=== PATIENT | male | born 1930 | race Caucasian/White ===

== ENCOUNTER 2016-06-30 07:52 | Emergency (ER) | payer MEDICARE, MEDICAID ==
[2016-06-30 09:18] LABS: ABSOLUTE EOSINOPHILS # (AUTO) 0.5 10^3/uL (0.0-0.6); ABSOLUTE LYMPHOCYTES (AUTO) 1.1 10^3/uL (0.5-4.7); ABSOLUTE NEUT (AUTO) 5.5 10^3/uL (1.7-8.2); BASOPHILS % (AUTO) 0.2 % (0-2); EOSINOPHILS % (AUTO) 5.7 % (0-6); HEMATOCRIT 34.7 % (37.9-51.0); HGB HCT DIFFERENCE 1.3; LYMPHOCYTES % (AUTO) 13.3 % (13-45); MEAN CORPUSCULAR HEMOGLOBIN 31.3 pg (27.0-33.4); MEAN CORPUSCULAR HGB CONC 34.6 g/dL (32.0-36.0); MEAN CORPUSCULAR VOLUME 91 fl (80-97); MONOCYTES % (AUTO) 12.8 % (3-13); RED BLOOD COUNT 3.84 10^6/uL (4.35-5.55); RED CELL DISTRIBUTION WIDTH 13.4 % (11.5-14.0); WHITE BLOOD COUNT 8.1 10^3/uL (4.0-10.5)
[2016-06-30 09:40] LABS: ALANINE AMINOTRANSFERASE 37 U/L (21-72); ALBUMIN 3.2 g/dL (3.5-5.0); ALKALINE PHOSPHATASE 108 U/L (38-126); ANION GAP 11 (5-19); ASPARTATE AMINO TRANSFERASE 26 U/L (17-59); BILIRUBIN,TOTAL 0.6 mg/dL (0.2-1.3); BLOOD UREA NITROGEN 18 mg/dL (7-20); CARBON DIOXIDE 28 mmol/L (22-30); CHLORIDE 103 mmol/L (98-107); CREATININE RESULT 0.99 mg/dL (0.52-1.25); GLUCOSE 112 mg/dL (75-110); SODIUM 141.8 mmol/L (137-145); TOTAL PROTEIN 6.5 g/dL (6.3-8.2)
[2016-06-30 10:09] LABS: VENOUS BLOOD BASE EXCESS 4.5 mmol/L; VENOUS BLOOD PCO2 52.3 mmHg (35-63); VENOUS BLOOD PH 7.39 (7.30-7.42)
--- NOTE | 2016-06-30 10:12 | EKG REPORT ---
SEVERITY:- OTHERWISE NORMAL ECG - SINUS RHYTHM LEFT AXIS DEVIATION : Confirmed by: Lucinda Fleming 30-Jun-2016 10:10:52
[2016-06-30 10:35] LABS: PROTHROMBIN TIME 14.5 SEC (11.4-15.4)
[2016-06-30 12:02] LABS: APPEARANCE,URINE HAZY; BILIRUBIN,URINE NEGATIVE (NEGATIVE); GLUCOSE, URINE NEGATIVE (NEGATIVE); KETONES,URINE NEGATIVE (NEGATIVE); PROTEIN,URINE 30 mg/dL (NEGATIVE); URINE SPECIFIC GRAVITY 1.016
[2016-06-30 12:03] LABS: BACTERIA,URINE 4+ /HPF; LEUKOCYTE ESTERASE,URINE LARGE (NEGATIVE); NITRITE,URINE POSITIVE (NEGATIVE); UROBILINOGEN,URINE NEGATIVE mg/dL (<2.0); WBC,URINE 50-100 /HPF
--- NOTE | 2016-06-30 12:31 | ER Document Report ---
ED General - General Chief Complaint: Altered Mental Status Stated Complaint: ALTERED MENTAL STATUS Mode of Arrival: Medic Information source: Patient, Emergency Med Personnel Cannot obtain history due to: Dementia, Altered mental status Notes: 85-year-old male sent in from care facility with concerns for confusion. Denies any fevers chills nausea vomiting or diarrhea. Patient has baseline dementia appears to be more confused TRAVEL OUTSIDE OF THE [place] IN LAST 30 DAYS: No - HPI Onset: This morning Onset/Duration: Sudden Quality of pain: No pain Severity: Mild Pain Level: Denies Associated symptoms: Weakness Exacerbated by: Denies Relieved by: Denies Similar symptoms previously: Yes Recently seen / treated by doctor: No - Related Data Allergies/Adverse Reactions: No Known Allergies Allergy (Verified 06/03/15 18:15) Past Medical History - General Information source: [facility] Records, Outside Facility Records - Social History Smoking Status: Never Smoker Cigarette use (# per day): No Chew tobacco use (# tins/day): No Smoking Education Provided: No Frequency of alcohol use: None Drug Abuse: None Family History: Reviewed & Not Pertinent Patient has suicidal ideation: No Patient has homicidal ideation: No - Past Medical History Cardiac Medical History: Reports: Hx Congestive Heart Failure, Hx Hypertension Pulmonary Medical History: Denies: Hx Tuberculosis GI Medical History: Reports: Hx Gastroesophageal Reflux Disease Musculoskeltal Medical History: Reports Hx Arthritis - Osteoarthritis Psychiatric Medical History: Denies: Hx Depression - Immunizations Hx Diphtheria, Pertussis, Tetanus Vaccination: Yes Hx Pneumococcal Vaccination: 04/02/14 Review of Systems - Review of Systems Notes: REVIEW OF SYSTEMS: CONSTITUTIONAL : Denies fever, chills, or sweats. Denies recent illness. EENT: Denies eye, ear, throat, or mouth pain or symptoms. Denies nasal or sinus congestion or discharge. Denies throat, tongue, or mouth swelling or difficulty swallowing. CARDIOVASCULAR: Denies chest pain. Denies palpitations or racing or irregular heart beat. Denies ankle edema. RESPIRATORY: Denies cough, cold, or chest congestion. Denies shortness of breath, difficulty breathing, or wheezing. GASTROINTESTINAL: Denies abdominal pain or distention. Denies nausea, vomiting , or diarrhea. Denies blood in vomitus, stools, or per rectum. Denies black, tarry stools. Denies constipation. GENITOURINARY: Denies difficulty urinating, painful urination, burning, frequency, blood in urine, or discharge. MUSCULOSKELETAL: Denies back or neck pain or stiffness. Denies joint pain or swelling. SKIN: Denies rash, lesions or sores. HEMATOLOGIC : Denies easy bruising or bleeding. LYMPHATIC: Denies swollen, enlarged glands. NEUROLOGICAL: Confusion noted per care facility PSYCHIATRIC: Denies anxiety or stress. Denies depression, suicidal ideation, or homicidal ideation. ALL OTHER SYSTEMS REVIEWED AND NEGATIVE. Dictation was performed using [employer] voice recognition software PHYSICAL EXAMINATION: GENERAL: Elderly male no acute distress HEAD: Atraumatic, normocephalic. EYES: Pupils equal round and reactive to light, extraocular movements intact, sclera anicteric, conjunctiva are normal. ENT: Nares patent, oropharynx clear without exudates. Moist mucous membranes. NECK: Normal range of motion, supple without lymphadenopathy LUNGS: Breath sounds clear to auscultation bilaterally and equal. No wheezes rales or rhonchi. HEART: Regular rate and rhythm without murmurs ABDOMEN: Soft, nontender, nondistended abdomen. No guarding, no rebound. No masses appreciated. Musculoskeletal: Normal range of motion, no pitting or edema. No cyanosis. NEUROLOGICAL: Baseline dementia PSYCH: Normal mood, normal affect. SKIN: Warm, Dry, normal turgor, no rashes or lesions noted. Physical Exam - Vital signs Vitals: Temp Pulse Resp BP Pulse Ox 98.0 F 95 20 134/94 H 93 06/30/16 08:06 06/30/16 08:06 06/30/16 08:06 06/30/16 08:06 06/30/16 08:06 Course - Re-evaluation Re-evalutation: 06/30/16 16:17 A septic workup was performed given the vague complaints, it does appear the patient has a urinary tract infection will restart on antibiotics. Culture has been ordered patient's otherwise stable and appears to be at his baseline. I will have the patient discharged back to care facility where he can have close care. They have been instructed to send the patient back immediately if there are any other concerns After performing a Medical Screening Examination, I estimate there is LOW risk for ACUTE CORONARY SYNDROME, RESPIRATORY FAILURE, SEPSIS OR MENINGITIS, thus I consider the discharge disposition reasonable. The patient and I have discussed the diagnosis and risks and even though he has dementia, we agree with discharging home with close follow-up. We also discussed returning to the Emergency Department immediately if new or worsening symptoms occur. We have discussed the symptoms which are most concerning (e.g., changing or worsening pain, trouble swallowing or breathing, neck stiffness, fever) that necessitate immediate return. - Vital Signs Vital signs: Temp Pulse Resp BP Pulse Ox 98.5 F 102 H 16 121/68 92 06/30/16 14:02 06/30/16 14:02 06/30/16 14:02 06/30/16 14:02 06/30/16 14:02 - Laboratory Result Diagrams: 06/30/16 08:57 06/30/16 08:57 Laboratory results interpreted by me: 06/30/16 06/30/16 06/30/16 08:57 08:57 10:30 RBC 3.84 L Hgb 12.0 L Hct 34.7 L Plt Count 130 L Glucose 112 H Albumin 3.2 L Urine Protein 30 H Urine Nitrite POSITIVE H Ur Leukocyte Esterase LARGE H Urine Ascorbic Acid 40 H - Diagnostic Test Radiology reviewed: Image reviewed, Reports reviewed Discharge - Discharge Clinical Impression: Confusion UTI (urinary tract infection) Qualifiers: Urinary tract infection type: acute cystitis Hematuria presence: without hematuria Qualified Code(s): N30.00 - Acute cystitis without hematuria Condition: Stable Disposition: HOME, SELF-CARE Instructions: Urinary Tract Infection ([facility]) Prescriptions: Cephalexin Monohydrate [Keflex 500 mg Capsule] 500 mg PO BID #20 capsule Referrals: Rohan Bell CONTINUITY COORDINATOR [Primary Care Provider] - Follow up tomorrow
[2016-06-30] MEDS ORDERED: CEFTRIAXONE 1 GM/D5W RTU 50 ML IV ONE (12:36)
[2016-06-30 14:22] VITALS: BP 121/68
== END 2016-06-30 14:30 | disposition home or self-care (01) ==
LOC: ER 07:52
DX: N30.00 Acute cystitis without hematuria (principal); R53.1 Weakness; I10 Essential (primary) hypertension
CPT/HCPCS: 36415; 51702; 70450; 80053; 81001; 82803; 82962; 83605; 85025; 85610; 87040; 87086; 87088; 87186; 93005; 93010; 99285

== ENCOUNTER 2016-07-07 11:32 | Emergency (ER) | payer MEDICARE, MEDICAID ==
[2016-07-07 12:36] LABS: ABSOLUTE EOSINOPHILS # (AUTO) 0.7 10^3/uL (0.0-0.6); ABSOLUTE LYMPHOCYTES (AUTO) 1.9 10^3/uL (0.5-4.7); ABSOLUTE MONOCYTES (AUTO) 1.1 10^3/uL (0.1-1.4); ABSOLUTE NEUT (AUTO) 6.3 10^3/uL (1.7-8.2); BASOPHILS % (AUTO) 0.4 % (0-2); EOSINOPHILS % (AUTO) 6.8 % (0-6); HEMATOCRIT 33.6 % (37.9-51.0); HEMOGLOBIN 11.4 g/dL (13.5-17.0); HGB HCT DIFFERENCE 0.6; MEAN CORPUSCULAR HEMOGLOBIN 30.9 pg (27.0-33.4); MEAN CORPUSCULAR VOLUME 91 fl (80-97); MONOCYTES % (AUTO) 10.7 % (3-13); RED BLOOD COUNT 3.69 10^6/uL (4.35-5.55); RED CELL DISTRIBUTION WIDTH 13.2 % (11.5-14.0); SEGMENTED NEUTROPHILS % (AUTO) 63.1 % (42-78); WHITE BLOOD COUNT 9.9 10^3/uL (4.0-10.5)
[2016-07-07] MEDS ORDERED: IPRATROPIUM/ALBUTEROL 0.5-2.5 MG/3 ML AMPUL NEB ONE (14:12)
--- NOTE | 2016-07-07 14:37 | ER Document Report ---
ED Respiratory Problem - General Chief Complaint: Cough Stated Complaint: NO COMPLAINTS/ASSESSMENT Mode of Arrival: Medic Information source: Emergency Med Personnel, Outside Facility Records Cannot obtain history due to: Dementia Notes: 85 y/o M presents to ED via EMS from [facility] referred by PCP for evaluation of possible pneumonia. Per facility records was noted to have rhonchi this morning per provider and was sent to the ED for x-ray. Records also test evaluation of rash to left upper thorax that he has had for several weeks. Patient has been on a course of oral Cipro and cephalexin for recently diagnosed UTI over the last 2 days. Afebrile on vital signs and O2 saturation > 95% on 2L NC. Patient is poor historian due to dementia but denies pain or discomfort at this time. TRAVEL OUTSIDE OF THE [place] IN LAST 30 DAYS: No - HPI Patient complains to provider of: Cough Pain Level: Denies Cough: Nonproductive Recently seen / treated by doctor: Yes - Related Data Allergies/Adverse Reactions: No Known Allergies Allergy (Verified 06/03/15 18:15) Past Medical History - General Information source: Emergency Med Personnel, Outside Facility Records Cannot obtain history due to: Dementia - Social History Smoking Status: Unknown if Ever Smoked Frequency of alcohol use: None Drug Abuse: None Lives with: Family Family History: Reviewed & Not Pertinent - Past Medical History Cardiac Medical History: Reports: Hx Congestive Heart Failure, Hx Hypertension Pulmonary Medical History: Denies: Hx Tuberculosis GI Medical History: Reports: Hx Gastroesophageal Reflux Disease Musculoskeltal Medical History: Reports Hx Arthritis - Osteoarthritis Psychiatric Medical History: Denies: Hx Depression Surgical Hx: Negative - Immunizations Hx Diphtheria, Pertussis, Tetanus Vaccination: Yes Hx Pneumococcal Vaccination: 04/02/14 Review of Systems - Review of Systems Constitutional: No symptoms reported EENT: No symptoms reported Cardiovascular: No symptoms reported Respiratory: See HPI Gastrointestinal: No symptoms reported Genitourinary: No symptoms reported Male Genitourinary: No symptoms reported Musculoskeletal: No symptoms reported Skin: See HPI Hematologic/Lymphatic: No symptoms reported Neurological/Psychological: No symptoms reported -: Yes All other systems reviewed and negative Physical Exam - Vital signs Vitals: Resp BP Pulse Ox 23 H 148/86 H 98 07/07/16 12:12 07/07/16 12:12 07/07/16 12:12 Interpretation: Normal - General General appearance: Appears well, Alert In distress: None - HEENT Head: Normocephalic, Atraumatic Eyes: Normal Conjunctiva: Normal Pupils: PERRL Ears: Normal External canal: Normal Sinus: Normal Nasal: Normal Mouth/Lips: Normal Mucous membranes: Normal, Moist Pharynx: Normal. No: Blood in hypopharynx, Erythema, Exudate, Peritonsillar abscess, Post nasal drainage, Retropharyngeal abscess, Tonsillar hypertrophy, Uvular edema, Potential airway comprom., Other Neck: Normal. No: Anterior cervical chain, Posterior cervical chain, Lymphadenopathy, Meningismus, Subcutaneous emphysema - Respiratory Respiratory status: No respiratory distress. No: Labored, Tachypnea Chest status: Nontender Breath sounds: Nonproductive cough, Rhonchi - Mild rhonchi to bilateral upper lobes. No: Decreased air movement, Rales, Stridor, Wheezing Chest palpation: Normal. No: Flail segment, [place] frothy sputum, Purulent sputum , Subcutaneous emphysema, Sucking chest wound, Tender, Ecchymosis, Wounds, Other - Cardiovascular Rhythm: Regular Heart sounds: Normal auscultation Murmur: No Pulses: Normal: Radial Normal capillary refill: Yes - Abdominal Inspection: Normal Distension: No distension Bowel sounds: Normal Tenderness: Nontender Organomegaly: No organomegaly - Back Back: Normal, Nontender - Extremities General upper extremity: Normal inspection, Nontender, Normal color, Normal ROM , Normal strength, Normal temperature. No: Tender, Edema General lower extremity: Normal inspection, Nontender, Normal color, Normal strength, Normal temperature. No: Tender, Edema, Chaparro's sign - Neurological Neuro grossly intact: Yes Cognition: Normal Orientation: AAOx4 Daljit Coma Scale Eye Opening: Spontaneous Daljit Coma Scale Verbal: Oriented [place] Coma Scale Motor: Obeys Commands [place] Coma Scale Total: 15 Speech: Normal Motor strength normal: LUE, RUE, LLE, RLE Sensory: Normal - Psychological Associated symptoms: Normal affect, Normal mood - Skin Skin Temperature: Warm Skin Moisture: Dry Skin Color: Normal Skin Turgor: Loose Skin irregularity: Rash - Patchy erythematous and slightly scaly rash/skin changes to left upper thorax. No swelling, drainage, skin thickening, fluctuance, or warmth. Course - Re-evaluation Re-evalutation: 07/07/16 14:41 Patient hemodynamically stable, in no distress, afebrile, nontoxic, and appears well-hydrated. Mild rhonchi resolved after a single DuoNeb treatment. Patient O2 sat 95% on room air. Patient at baseline neurological status per outside facility records. Chest x-ray shows minimal bibasilar atelectasis without overt pneumonia. No indication for starting additional antibiotic regimen at this time as patient is currently on course of ciprofloxacin and cephalexin for UTI. Rash/skin eruption to left upper thorax not suggestive of significant or emergent etiology at this time. Patient is well-appearing and in no distress. Patient appears stable for discharge back to nursing facility at this time. Patient presentation, findings, ED care, and plan discussed with ED physician Dr. Bravo who concurs with evaluation and treatment. - Vital Signs Vital signs: Temp Pulse Resp BP Pulse Ox 98.8 F 17 150/77 H 95 07/07/16 12:33 07/07/16 16:01 07/07/16 16:01 07/07/16 16:01 - Laboratory Result Diagrams: 07/07/16 12:10 Laboratory results interpreted by me: 07/07/16 12:10 RBC 3.69 L Hgb 11.4 L Hct 33.6 L Eosinophils % 6.8 H Absolute Eosinophils 0.7 H - Diagnostic Test Radiology reviewed: Image reviewed, Reports reviewed Discharge - Discharge Clinical Impression: Atelectasis Condition: Stable Disposition: HOME-SNF (ED ONLY) Instructions: Atelectasis ([facility]) Additional Instructions: Follow-up with your primary care provider tomorrow. Return to the Emergency Department for any worsening symptoms or concerns.
[2016-07-07 16:49] VITALS: BP 150/77
== END 2016-07-07 16:20 ==
LOC: ER 11:32
DX: J98.11 Atelectasis (principal); R21 Rash and other nonspecific skin eruption; N39.0 Urinary tract infection, site not specified; F03.90 Unspecified dementia, unspecified severity, without behavioral disturbance, psychotic disturbance, mood disturbance, and anxiety; I10 Essential (primary) hypertension
CPT/HCPCS: 94640; 99284; 36415; 87040; 85025; 71020; A9270; J7620

== ENCOUNTER 2016-08-02 13:55 | Emergency (ER) | payer MEDICARE, MEDICAID ==
[2016-08-02 15:11] LABS: ABSOLUTE EOSINOPHILS # (AUTO) 0.3 10^3/uL (0.0-0.6); ABSOLUTE LYMPHOCYTES (AUTO) 1.3 10^3/uL (0.5-4.7); ABSOLUTE NEUT (AUTO) 4.1 10^3/uL (1.7-8.2); BASOPHILS % (AUTO) 0.3 % (0-2); EOSINOPHILS % (AUTO) 4.2 % (0-6); HEMATOCRIT 35.5 % (37.9-51.0); HEMOGLOBIN 12.4 g/dL (13.5-17.0); HGB HCT DIFFERENCE 1.7; LYMPHOCYTES % (AUTO) 19.7 % (13-45); MEAN CORPUSCULAR HEMOGLOBIN 31.6 pg (27.0-33.4); MEAN CORPUSCULAR VOLUME 90 fl (80-97); MONOCYTES % (AUTO) 14.8 % (3-13); RED BLOOD COUNT 3.94 10^6/uL (4.35-5.55); RED CELL DISTRIBUTION WIDTH 13.8 % (11.5-14.0); WHITE BLOOD COUNT 6.7 10^3/uL (4.0-10.5)
[2016-08-02 15:20] LABS: AMORPHOUS SEDIMENT,URINE TRACE /HPF; APPEARANCE,URINE SLIGHTLY-CLOUDY; BILIRUBIN,URINE NEGATIVE (NEGATIVE); GLUCOSE, URINE NEGATIVE (NEGATIVE); KETONES,URINE NEGATIVE (NEGATIVE); LEUKOCYTE ESTERASE,URINE MODERATE (NEGATIVE); NITRITE,URINE NEGATIVE (NEGATIVE); PROTEIN,URINE NEGATIVE (NEGATIVE); URINE SPECIFIC GRAVITY 1.011; UROBILINOGEN,URINE NEGATIVE mg/dL (<2.0)
[2016-08-02 15:31] LABS: ALANINE AMINOTRANSFERASE 27 U/L (21-72); ALBUMIN 3.7 g/dL (3.5-5.0); ALKALINE PHOSPHATASE 103 U/L (38-126); ANION GAP 11 (5-19); ASPARTATE AMINO TRANSFERASE 23 U/L (17-59); BILIRUBIN,TOTAL 0.4 mg/dL (0.2-1.3); BLOOD UREA NITROGEN 18 mg/dL (7-20); CARBON DIOXIDE 29 mmol/L (22-30); CHLORIDE 102 mmol/L (98-107); CREATININE RESULT 1.15 mg/dL (0.52-1.25); GLUCOSE 121 mg/dL (75-110); POTASSIUM 4.2 mmol/L (3.6-5.0); SODIUM 142.3 mmol/L (137-145); TOTAL PROTEIN 6.8 g/dL (6.3-8.2)
[2016-08-02] MEDS ORDERED: CEFTRIAXONE RTU 1 GM/D5W 50 ML IV ONE (15:55)
[2016-08-02] MEDS ORDERED: LIDOCAINE 1% INJ-PF (10 MG/ML) 30 ML SDV INJ ONE (16:08)
[2016-08-02] MEDS ORDERED: LEVOFLOXACIN 500 MG/D5W RTU 100 ML IV ONE (16:12)
--- NOTE | 2016-08-02 16:32 | ER Document Report ---
ED General - General Chief Complaint: Altered Mental Status Stated Complaint: ALTERED MENTAL STATUS Information source: Patient Notes: 85-year-old male who presents from the [facility] assisted living location secondary to some change in mental status. Supposedly the patient was having "two-minute periods of staring off". There is been no fevers, vomiting, or diarrhea. Patient on one month ago was treated for urinary tract infection with Keflex. Urine cultures did show Escherichia coli greater than 100,000 colonies per milliliter resistant to first and second and third generation cephalosporins. It appears reviewing the records that note was made from this facility to the facility of the patient's residence. Patient has no history of seizures. Patient does have baseline dementia. Patient denies any and all pain in any location when I ask him with repeat questioning. TRAVEL OUTSIDE OF THE [place] IN LAST 30 DAYS: No - HPI Onset: This morning Onset/Duration: Gradual Quality of pain: No pain Severity: Moderate Pain Level: Denies Associated symptoms: Other - See above Exacerbated by: Denies Relieved by: Denies Similar symptoms previously: Yes Recently seen / treated by doctor: Yes - Related Data Allergies/Adverse Reactions: No Known Allergies Allergy (Verified 06/03/15 18:15) Past Medical History - General Information source: Patient, Emergency Med Personnel, [facility] Records - Social History Smoking Status: Unknown if Ever Smoked Cigarette use (# per day): No Chew tobacco use (# tins/day): No Smoking Education Provided: No Frequency of alcohol use: None Drug Abuse: None Family History: Reviewed & Not Pertinent - Past Medical History Cardiac Medical History: Reports: Hx Congestive Heart Failure, Hx Hypertension Pulmonary Medical History: Denies: Hx Tuberculosis GI Medical History: Reports: Hx Gastroesophageal Reflux Disease Musculoskeltal Medical History: Reports Hx Arthritis - Osteoarthritis Psychiatric Medical History: Denies: Hx Depression - Immunizations Hx Diphtheria, Pertussis, Tetanus Vaccination: Yes Hx Pneumococcal Vaccination: 04/02/14 Review of Systems - Review of Systems Constitutional: denies: Fever EENT: denies: Eye discharge, Nose congestion, Nose discharge Cardiovascular: denies: Chest pain Respiratory: denies: Short of breath Gastrointestinal: denies: Vomiting Genitourinary: denies: Dysuria Musculoskeletal: denies: Leg swelling Skin: Other - no hives. denies: Rash Neurological/Psychological: Other - no slurred speech -: Yes All other systems reviewed and negative Physical Exam - Vital signs Vitals: Resp 16 08/02/16 14:00 Notes: Reviewed vital signs and nursing note as charted by RN. CONSTITUTIONAL: Alert and polite and follows commands. He is oriented to person only. Well-appearing; well-nourished HEAD: Normocephalic; atraumatic EYES: PERRL ENT: Normal nose; no rhinorrhea; moist mucous membranes; pharynx without lesions noted NECK: Supple without meningismus; non-tender; no cervical lymphadenopathy, no masses CARD: Regular rate and rhythm; no murmurs, no clicks, no rubs, no gallops; symmetric distal pulses RESP: Normal chest excursion without splinting or tachypnea; breath sounds clear and equal bilaterally ABD/GI: Normal bowel sounds; non-distended; soft, non-tender, no rebound, no guarding; no palpable organomegaly or masses BACK: The back appears normal and is non-tender to palpation, there is no CVA tenderness EXT: Normal ROM in all joints; non-tender to palpation; no cyanosis, no effusions, no edema SKIN: Patient appears to have an area of tenderness, fluctuance, and induration to the left lower area of his breast consistent mostly with a small abscess. NEURO: CN II through XII are intact. Moves all extremities equally; Motor and sensory function intact Course - Re-evaluation Re-evalutation: I spoke with Sarah at the nursing care facility. She reiterated the story. She was unaware of breast lesion. 08/02/16 16:33 Labs as recorded. Given the previous urine culture, with the small abscess that we will perform an incision and drainage, we will most likely start the patient on Bactrim with strict return precautions and urine culture pending. We will obtain a CT scan of the head given the patient's history and age. 08/02/16 16:36 EKG shows a heart of 79, normal sinus rhythm, borderline left axis deviation, no obvious ST elevation or depression. Minimally prolonged QT interval. Old EKG shows no obvious appreciable change. 08/02/16 18:42 Incision and drainage has been performing cultures have been sent. Minimal serous sanguinous drainage. I probed to break up any obvious loculations. No packing was placed. Area of erythema has been circled. Keflex and Bactrim will be prescribed. 08/02/16 19:33 CT scan of the head shows no acute abnormalities. Patient still has no focal neurological deficits, vomiting, or fevers. Patient does not have any obvious lethargy. I have called the facility and have written extensive discharge summaries regarding urine culture follow-up and wound care follow-up and reassessment of the left chest wound. I will treat the patient with Bactrim and Keflex given the urinary tract infection, urine culture results, and cellulitis/abscess of the chest wall. - Vital Signs Vital signs: Temp Pulse Resp BP Pulse Ox 98.8 F 70 16 155/70 H 98 08/02/16 19:28 08/02/16 19:28 08/02/16 19:28 08/02/16 19:28 08/02/16 19:28 - Laboratory Result Diagrams: 08/02/16 14:42 08/02/16 14:42 Laboratory results interpreted by me: 08/02/16 08/02/16 08/02/16 14:42 14:42 14:42 RBC 3.94 L Hgb 12.4 L Hct 35.5 L Plt Count 144 L Monocytes % 14.8 H Glucose 121 H Ur Leukocyte Esterase MODERATE H Urine Ascorbic Acid 20 H Procedures - Incision and Drainage Left Chest Type: Simple Anesthetic type: 1% Lidocaine Blade size: 11 I&D procedure: Chlorprep applied Incision Method: Incision made by scalpel Amount/type of drainage: minimal Discharge - Discharge Clinical Impression: Altered mental status Qualifiers: Altered mental status type: unspecified Qualified Code(s): R41.82 - Altered mental status, unspecified UTI (urinary tract infection) Qualifiers: Urinary tract infection type: acute cystitis Hematuria presence: with hematuria Qualified Code(s): N30.01 - Acute cystitis with hematuria Cellulitis Qualifiers: Site of cellulitis: trunk Site of cellulitis of trunk: chest wall Qualified Code(s): L03.313 - Cellulitis of chest wall Condition: Good Disposition: HOME, SELF-CARE Additional Instructions: Please make sure that you provide the antibiotics as prescribed. Please make sure that you have a provider check his urine culture on Wednesday as well as recheck his left chest cellulitis/lesion as well as the wound cultures from the incision we performed here in the emergency department. Send back immediately with any fevers, vomiting, change in the size of the redness of the left chest, increased confusion, or any other acute problems. Prescriptions: Cephalexin Monohydrate [Keflex 500 mg Capsule] 500 mg PO Q6H 7 Days Sulfamethoxazole/Trimethoprim [Bactrim Ds Tablet] 1 each PO BID #14 tablet Referrals: Rohan Bell DRIVER TRAINEE [Primary Care Provider] - Follow up as needed
[2016-08-02] MEDS ORDERED: CEPHALEXIN 500 MG CAPSULE PO ONE ×2 (18:02→21:15)
--- NOTE | 2016-08-02 19:32 | EKG REPORT ---
SEVERITY:- BORDERLINE ECG - SINUS RHYTHM BORDERLINE LEFT AXIS DEVIATION BORDERLINE PROLONGED QT INTERVAL : Confirmed by: Lucinda Fleming 02-Aug-2016 19:31:52
[2016-08-02 21:25] VITALS: BP 156/89
== END 2016-08-02 21:25 | disposition home or self-care (01) ==
LOC: ER 13:55
PROC: 0H95XZZ Drainage of Chest Skin, External Approach (ICD-10-PCS; principal; 2016-08-02)
DX: R41.82 Altered mental status, unspecified (principal); N30.01 Acute cystitis with hematuria; L03.313 Cellulitis of chest wall; F03.90 Unspecified dementia, unspecified severity, without behavioral disturbance, psychotic disturbance, mood disturbance, and anxiety
CPT/HCPCS: 36415; 51701; 70450; 80053; 81001; 84484; 85025; 87070; 87075; 87077; 87186; 87205; 93005; 93010; 99285

== ENCOUNTER 2016-08-18 10:43 | Emergency (ER) | payer MEDICARE, MEDICAID ==
[2016-08-18 13:10] LABS: AMORPHOUS SEDIMENT,URINE TRACE /HPF; APPEARANCE,URINE SLIGHTLY-CLOUDY; BILIRUBIN,URINE NEGATIVE (NEGATIVE); GLUCOSE, URINE NEGATIVE (NEGATIVE); KETONES,URINE NEGATIVE (NEGATIVE); LEUKOCYTE ESTERASE,URINE NEGATIVE (NEGATIVE); NITRITE,URINE NEGATIVE (NEGATIVE); PROTEIN,URINE NEGATIVE (NEGATIVE); URINE SPECIFIC GRAVITY 1.014; UROBILINOGEN,URINE NEGATIVE mg/dL (<2.0)
[2016-08-18 13:10] LABS: ABSOLUTE LYMPHOCYTES (AUTO) 1.4 10^3/uL (0.5-4.7); ABSOLUTE MONOCYTES (AUTO) 0.8 10^3/uL (0.1-1.4); ABSOLUTE NEUT (AUTO) 7.8 10^3/uL (1.7-8.2); BASOPHILS % (AUTO) 0.3 % (0-2); EOSINOPHILS % (AUTO) 0.3 % (0-6); HEMATOCRIT 34.9 % (37.9-51.0); HEMOGLOBIN 12.1 g/dL (13.5-17.0); HGB HCT DIFFERENCE 1.4; LYMPHOCYTES % (AUTO) 14.1 % (13-45); MEAN CORPUSCULAR HEMOGLOBIN 30.9 pg (27.0-33.4); MEAN CORPUSCULAR HGB CONC 34.7 g/dL (32.0-36.0); MEAN CORPUSCULAR VOLUME 89 fl (80-97); MONOCYTES % (AUTO) 7.5 % (3-13); RED BLOOD COUNT 3.92 10^6/uL (4.35-5.55); RED CELL DISTRIBUTION WIDTH 13.2 % (11.5-14.0); SEGMENTED NEUTROPHILS % (AUTO) 77.8 % (42-78)
--- NOTE | 2016-08-18 13:32 | ER Document Report ---
ED General - General Chief Complaint: Vomiting Stated Complaint: VOMITING AND DIAREHHA Notes: Patient is an 85-year-old male is referred in for a his after one episode of emesis this morning and high blood pressure. Per EMS patient is a 85-year-old male who is suffering from dementia that is normal baseline mental status, was referred over from one episode of emesis. Upon their transportation, blood pressure was elevated but no higher than the systolics of 150s. Patient has been alert and is oriented to person and place but difficulty with time. Is coherent to tell us why he is in the emergency department which is because he threw up after breakfast this morning. At this time he denies any abdominal pain no evidence of symptomatic she is here hematemesis. Patient does admit that his last bowel movement was this morning normal. He does admit to a history of cancer but cannot speak to what kind. Medical history significant for hypertension, heart failure, kidney/bladder cancer requiring penile resection, dementia Patient's PCP is ROSANA Parr TRAVEL OUTSIDE OF THE [place] IN LAST 30 DAYS: No - Related Data Allergies/Adverse Reactions: No Known Allergies Allergy (Verified 06/03/15 18:15) Past Medical History - Social History Smoking Status: Unknown if Ever Smoked Family History: Reviewed & Not Pertinent - Past Medical History Cardiac Medical History: Reports: Hx Congestive Heart Failure, Hx Hypertension Pulmonary Medical History: Denies: Hx Tuberculosis GI Medical History: Reports: Hx Gastroesophageal Reflux Disease Musculoskeltal Medical History: Reports Hx Arthritis - Osteoarthritis Psychiatric Medical History: Denies: Hx Depression - Immunizations Hx Diphtheria, Pertussis, Tetanus Vaccination: Yes Hx Pneumococcal Vaccination: 04/02/14 Review of Systems - Review of Systems -: Yes ROS unobtainable due to patient's medical condition Physical Exam - Vital signs Vitals: Temp Pulse Resp BP Pulse Ox 98.5 F 88 16 148/81 H 94 08/18/16 10:55 08/18/16 10:55 08/18/16 10:55 08/18/16 10:55 08/18/16 10:55 - Notes Notes: PHYSICAL EXAM GENERAL: Alert, interacts well. HEAD: Normocephalic, atraumatic. EYES: Pupils equal, round, and reactive to light. Extraocular movements intact. ENT: Oral mucosa moist, tongue midline. NECK: Full range of motion. Supple. Trachea midline. LUNGS: Clear to auscultation bilaterally, no wheezes, rales, or rhonchi. No respiratory distress. HEART: Regular rate and rhythm. No murmurs, gallops, or rubs. ABDOMEN: firm distended, nontender. No guarding, rebound, or rigidity.. Bowel sounds present in all 4 quadrants. EXTREMITIES: Moves all 4 extremities spontaneously. No edema, radial and dorsalis pedis pulses 2/4 bilaterally. No cyanosis. NEUROLOGICAL: Alert and oriented x3. Normal speech. PSYCH: Normal affect, normal mood. SKIN: Warm, dry, normal turgor. No rashes or lesions noted. Course - Re-evaluation Re-evalutation: 08/18/16 15:54 Patient is an 85-year-old male who is referred to the emergency department today after one episode of emesis after breakfast. Physical exam reveals a distended but nontender abdomen. Otherwise patient is at his baseline mental status following commands without blood or or sensory deficits. No acute abdomen series revealed a questionable ileus therefore patient was sent for CT of the abdomen and pelvis with IV contrast to evaluate for any obstruction. CT the abdomen and pelvis does not reveal any evidence of an acute obstruction. At this time patient will be discharged home with a diagnosis of ileus on clear liquids for a couple of days and excited to follow up with PCP. Patient is hemodynamically stable afebrile and in no acute distress - Vital Signs Vital signs: Temp Pulse Resp BP Pulse Ox 98.5 F 88 17 135/72 H 95 08/18/16 10:55 08/18/16 10:55 08/18/16 15:01 08/18/16 15:01 08/18/16 15:01 - Laboratory Result Diagrams: 08/18/16 12:53 08/18/16 12:53 Laboratory results interpreted by me: 08/18/16 08/18/16 08/18/16 12:45 12:53 12:53 RBC 3.92 L Hgb 12.1 L Hct 34.9 L Est GFR (Non-Af Amer) 56 L Glucose 147 H Albumin 3.4 L Urine Ascorbic Acid 40 H - Diagnostic Test Radiology reviewed: Image reviewed, Reports reviewed Discharge - Discharge Clinical Impression: Ileus Condition: Good Disposition: HOME, SELF-CARE Instructions: Clear Liquid Diet ([facility]) Additional Instructions: Your abdomen is distended due to gas. This will be relieved by bowel movements and routine bowel habits. Please stick to a strict clear liquid diet for the next 3 days and follow up with primary care doctor this week. Please return if severe abdominal pain, vomiting with blood, bright red blood per rectum Forms: Elevated Blood Pressure Referrals: JACQUELYN PARR, PRINTING SPECIALIST [Primary Care Provider] - Follow up in 3-5 days
[2016-08-18 13:34] LABS: ALANINE AMINOTRANSFERASE 26 U/L (21-72); ALBUMIN 3.4 g/dL (3.5-5.0); ALKALINE PHOSPHATASE 91 U/L (38-126); ANION GAP 10 (5-19); ASPARTATE AMINO TRANSFERASE 21 U/L (17-59); BILIRUBIN,TOTAL 0.4 mg/dL (0.2-1.3); BLOOD UREA NITROGEN 20 mg/dL (7-20); CALCIUM 9.5 mg/dL (8.4-10.2); CARBON DIOXIDE 29 mmol/L (22-30); CHLORIDE 102 mmol/L (98-107); CREATININE RESULT 1.22 mg/dL (0.52-1.25); GLUCOSE 147 mg/dL (75-110); LIPASE 40.7 U/L (23-300); POTASSIUM 4.1 mmol/L (3.6-5.0); SODIUM 140.6 mmol/L (137-145); TOTAL PROTEIN 7.2 g/dL (6.3-8.2)
[2016-08-18 17:14] VITALS: BP 135/85
--- NOTE | 2016-08-18 19:09 | ER Document Report ---
Doctor's Note Notes: 08/18/16 19:07 Patient independently seen and examined by myself A 5-year-old male from detention with report of vomiting times one. Patient has some dementia and cannot provide much useful history but I do believe his reports current symptoms is accurate. He denies any sensation of chest pain, shortness breath, nausea, abdominal pain now. On exam chest clear to auscultation bilateral breath sounds equal heart regular rate and rhythm abdomen soft nontender nondistended no guarding rebound rigidity Extremity is Luciano plus pulses X-ray CT scan and laboratory work reviewed Clinically patient does not have a bowel obstruction and I think would be best managed with clear liquid diet and conservative management in the outpatient setting. She is not distended and of believe NG tube will be of benefit at this point patient would be a very poor surgical candidate
--- NOTE | 2016-08-18 22:04 | EKG REPORT ---
SEVERITY:- NORMAL ECG - SINUS RHYTHM : Confirmed by: Estrella Roque MD 18-Aug-2016 22:03:38
== END 2016-08-18 17:32 | disposition home or self-care (01) ==
LOC: ER 10:43
DX: K56.7 Ileus, unspecified (principal); R11.10 Vomiting, unspecified; F03.90 Unspecified dementia, unspecified severity, without behavioral disturbance, psychotic disturbance, mood disturbance, and anxiety; I10 Essential (primary) hypertension; Z85.528 Personal history of other malignant neoplasm of kidney; Z85.51 Personal history of malignant neoplasm of bladder
CPT/HCPCS: 36415; 74022; 74177; 80053; 81001; 83690; 85025; 93005; 93010; 99285

== ENCOUNTER 2016-12-10 10:10 | Emergency (ER) | payer MEDICARE, MEDICAID ==
[2016-12-10 11:22] LABS: ABSOLUTE LYMPHOCYTES (AUTO) 1.2 10^3/uL (0.5-4.7); ABSOLUTE MONOCYTES (AUTO) 0.7 10^3/uL (0.1-1.4); ABSOLUTE NEUT (AUTO) 8.7 10^3/uL (1.7-8.2); BASOPHILS % (AUTO) 0.2 % (0-2); EOSINOPHILS % (AUTO) 0.1 % (0-6); HEMATOCRIT 39.7 % (37.9-51.0); HEMOGLOBIN 13.3 g/dL (13.5-17.0); HGB HCT DIFFERENCE 0.2; MEAN CORPUSCULAR HEMOGLOBIN 30.6 pg (27.0-33.4); MEAN CORPUSCULAR HGB CONC 33.5 g/dL (32.0-36.0); MEAN CORPUSCULAR VOLUME 92 fl (80-97); MONOCYTES % (AUTO) 6.6 % (3-13); RED BLOOD COUNT 4.34 10^6/uL (4.35-5.55); RED CELL DISTRIBUTION WIDTH 14.1 % (11.5-14.0); SEGMENTED NEUTROPHILS % (AUTO) 82.1 % (42-78); WHITE BLOOD COUNT 10.5 10^3/uL (4.0-10.5)
[2016-12-10 11:28] LABS: PROTHROMBIN TIME 14.5 SEC (11.4-15.4)
[2016-12-10 11:45] LABS: ALANINE AMINOTRANSFERASE 19 U/L (21-72); ALKALINE PHOSPHATASE 104 U/L (38-126); ANION GAP 12 (5-19); ASPARTATE AMINO TRANSFERASE 23 U/L (17-59); BILIRUBIN,DIRECT 0.3 mg/dL (0.0-0.4); BILIRUBIN,TOTAL 0.7 mg/dL (0.2-1.3); BLOOD UREA NITROGEN 27 mg/dL (7-20); CALCIUM 9.3 mg/dL (8.4-10.2); CARBON DIOXIDE 28 mmol/L (22-30); CHLORIDE 103 mmol/L (98-107); CREATINE KINASE 49 U/L (55-170); CREATININE RESULT 1.18 mg/dL (0.52-1.25); GLUCOSE 186 mg/dL (75-110); POTASSIUM 3.8 mmol/L (3.6-5.0); TOTAL PROTEIN 7.6 g/dL (6.3-8.2)
[2016-12-10 11:55] LABS: CREATINE KINASE MB 1.52 ng/mL (<4.55)
[2016-12-10 12:03] LABS: TROPONIN I < 0.012 ng/mL
--- NOTE | 2016-12-10 15:05 | ER Document Report ---
ED General - General Chief Complaint: Other Stated Complaint: WEAKNESS Time Seen by Provider: 12/10/16 12:22 Notes: Patient was sent here from his residence at [facility] because the staff reported that his hand was twitching this morning and that his pupils were dilated. He did not have any apparent complaints and they did not observe anything else abnormal so he was sent here to be evaluated. Since it is a pleasant elderly individual whose review of records reveals that he is a DNR patient. Patient answers questions appropriately. Says he lives in a local longterm. Does not have any complaints of any pains anywhere, in particular no headache, chest pain, or abdominal pains. Denies difficulty breathing or shortness of breath. Says he has never had a stroke. Reviewing the patient's past medical records shows that he has hypertension, high cholesterol, low thyroid,. TRAVEL OUTSIDE OF THE [place] IN LAST 30 DAYS: No - Related Data Allergies/Adverse Reactions: No Known Allergies Allergy (Verified 12/10/16 10:25) Past Medical History - Social History Smoking Status: Unknown if Ever Smoked Cigarette use (# per day): No Chew tobacco use (# tins/day): No Frequency of alcohol use: None Drug Abuse: None Family History: Reviewed & Not Pertinent - Past Medical History Cardiac Medical History: Reports: Hx Congestive Heart Failure, Hx Hypertension Neurological Medical History: Denies: Hx Cerebrovascular Accident, Hx Seizures GI Medical History: Reports: Hx Gastroesophageal Reflux Disease Musculoskeltal Medical History: Reports Hx Arthritis - Osteoarthritis Psychiatric Medical History: Denies: Hx Depression - Immunizations Hx Diphtheria, Pertussis, Tetanus Vaccination: Yes Hx Pneumococcal Vaccination: 04/02/14 Review of Systems - Review of Systems Notes: REVIEW OF SYSTEMS: CONSTITUTIONAL : Denies fever. EENT: Denies eye, ear, nose or mouth or throat pain or other symptoms. CARDIOVASCULAR: Denies chest pain. RESPIRATORY: Denies cough, chest congestion, or shortness of breath. GASTROINTESTINAL: Denies abdominal pain or nausea, vomiting, or diarrhea. GENITOURINARY: Denies difficulty or painful urinating, urinary frequency, blood in urine. MUSCULOSKELETAL: Denies back or neck pain. Denies joint pain or swelling. SKIN: Denies rash or skin lesions. NEUROLOGICAL: Denies LOC or altered mental status. Denies headache. Denies sensory loss or motor deficits. Patient appears to be stable and says he has no complaints. ALL OTHER SYSTEMS REVIEWED AND NEGATIVE. Constitutional: denies: Fever Physical Exam - Vital signs Vitals: Temp Pulse Resp BP Pulse Ox 97.7 F 97 20 139/81 H 95 12/10/16 10:32 12/10/16 10:32 12/10/16 10:32 12/10/16 10:32 12/10/16 10:32 Interpretation: Normal - Notes Notes: PHYSICAL EXAMINATION: GENERAL: Well-appearing, in no acute distress. Signs are all normal. May be a little bit confused, but does not appear to be in any distress. He is cooperative and follows commands. Answers questions appropriately. HEAD: Atraumatic, normocephalic. EYES: Pupils equal round and reactive to light, extraocular movements intact. ENT: oropharynx clear without exudates. Moist mucous membranes. NECK: Normal range of motion, supple. LUNGS: Breath sounds clear and equal bilaterally. HEART: Regular rate and rhythm without murmurs. ABDOMEN: Soft, nontender. No guarding or rebound. BACK: No tenderness throughout entire back. EXTREMITIES: Normal range of motion without pain. NEUROLOGICAL: Normal speech. Normal sensory, motor, and reflex exams. PSYCH: Normal mood, normal affect. SKIN: Warm, dry, no rashes. Course - Re-evaluation Re-evalutation: 12/10/16 20:03 Patient remained stable throughout his stay in the department. He did not have any complaints. He got in a lunch tray and he was able to eat lunch and feed himself at the entire meal. Exhibited no dilated pupils and no twitching of his hand during his entire stay in the department. - Vital Signs Vital signs: Temp Pulse Resp BP Pulse Ox 97.7 F 97 19 133/77 H 98 12/10/16 10:32 12/10/16 10:32 12/10/16 16:01 12/10/16 16:00 12/10/16 16:01 - Laboratory Result Diagrams: 12/10/16 11:05 12/10/16 11:05 Laboratory results interpreted by me: 12/10/16 12/10/16 11:05 11:05 RBC 4.34 L Hgb 13.3 L RDW 14.1 H Seg Neutrophils % 82.1 H Lymphocytes % 11.0 L Absolute Neutrophils 8.7 H BUN 27 H Est GFR (Non-Af Amer) 58 L Glucose 186 H ALT 19 L Creatine Kinase 49 L Discharge - Discharge Clinical Impression: Altered mental status Qualifiers: Altered mental status type: unspecified Qualified Code(s): R41.82 - Altered mental status, unspecified Condition: Stable Disposition: HOME, SELF-CARE Additional Instructions: Altered Mental Status--resolved An altered mental status is a change in the normal functioning of the brain. This alteration of function can range from minor decreased brain function with some forgetfulness and confusion to complete loss of consciousness and coma. There are many possible causes of an altered mental status and include brain injuries such as trauma or strokes, problems with oxygen supply to the brain, fever and infections of the brain and/or elsewhere in the body, metabolic abnormalities such as low or high blood sugar, overdoses or excessive medication ingestion, and mental and psychiatric illnesses. Sometimes the altered mental status resolves and a definite cause is not determined. If a cause for your altered mental status was found, it has likely been corrected. Your evaluation has not shown any condition that requires that you be admitted to the hospital. It is believed that you are safe to leave and return to your home. If you have a return of your symptoms, you should return for re-evaluation. NORMAL EXAM AND WORKUP: At this time, your examination and workup show no significant abnormality. No significant abnormal physical findings were noted. All laboratory, EKG, and imaging (x-ray, CT scans, ultrasound) studies that were ordered show no significant abnormality. Although your examination and all studies that were ordered showed no significant abnormal finding, there are no examinations and no studies that are 100% accurate. There is always the possibility that some abnormality could exist and not be detected with physical examination or within the limits and capabilities of laboratory and other studies. You should return or follow up as you were instructed on your visit today for further evaluation if your symptoms do not resolve. FOLLOW-UP CARE: If you have been referred to a physician for follow-up care, call the physician s office for an appointment as you were instructed or within the next two days. If you experience worsening or a significant change in your symptoms, notify the physician immediately or return to the Emergency Department at any time for re-evaluation. At this time, it appears that her symptoms have resolved and you are no longer having any problems. Your laboratory evaluation is essentially normal. We are returning to the longterm. If you have any change in your condition and new or worsening symptoms, return for us to reevaluate at any time.
[2016-12-10 17:10] VITALS: BP 133/77
--- NOTE | 2016-12-10 22:31 | EKG REPORT ---
SEVERITY:- ABNORMAL ECG - SINUS RHYTHM FIRST DEGREE AV BLOCK : Confirmed by: Lucinda Fleming 10-Dec-2016 22:30:59
== END 2016-12-10 16:53 | disposition home or self-care (01) ==
LOC: ER 10:10
DX: R41.82 Altered mental status, unspecified (principal); I10 Essential (primary) hypertension; Z66 Do not resuscitate
CPT/HCPCS: 36415; 80053; 82550; 82553; 84484; 85025; 85610; 87040; 93005; 93010; 99285

== ENCOUNTER 2017-05-19 09:52 | Emergency (ER) | payer MEDICARE, MEDICAID ==
[2017-05-19 10:44] LABS: APPEARANCE,URINE CLOUDY; BILIRUBIN,URINE NEGATIVE (NEGATIVE); GLUCOSE, URINE NEGATIVE (NEGATIVE); KETONES,URINE NEGATIVE (NEGATIVE); LEUKOCYTE ESTERASE,URINE LARGE (NEGATIVE); NITRITE,URINE POSITIVE (NEGATIVE); PROTEIN,URINE 30 mg/dL (NEGATIVE); URINE SPECIFIC GRAVITY 1.011; UROBILINOGEN,URINE NEGATIVE mg/dL (<2.0)
[2017-05-19] MEDS ORDERED: LIDOCAINE 1% INJ-PF (10 MG/ML) 30 ML SDV INJ ONE (11:11)
[2017-05-19] MEDS ORDERED: CEFTRIAXONE INJ 1000 MG VIAL IM ONE (11:11)
[2017-05-19] MEDS ORDERED: LEVOFLOXACIN 500 MG TABLET PO ONE (11:12)
--- NOTE | 2017-05-19 11:16 | ER Document Report ---
ED General - General Mode of Arrival: Medic Information source: Emergency Med Personnel Cannot obtain history due to: Dementia TRAVEL OUTSIDE OF THE [place] IN LAST 30 DAYS: No <EYAL SHAW - Last Filed: 05/19/17 11:57> <STANISLAW COX - Last Filed: 05/19/17 13:33> - General Chief Complaint: Won't Eat Stated Complaint: ALTERED MENTAL STATUS Time Seen by Provider: 05/19/17 10:40 Notes: Patient is an 86 year old male that presents to the emergency department today with complaints of "not acting himself" according to EMS. EMS reports that half-way states that he has not been eating and is not as active as he normally is. Patient presented similarly in the past and was found to have a urine infection. Patient is demented at baseline and history is limited. (EYAL SHAW) - Related Data Allergies/Adverse Reactions: No Known Allergies Allergy (Verified 12/10/16 10:25) Past Medical History - General Information source: Patient Cannot obtain history due to: Dementia - Social History Smoking Status: Unknown if Ever Smoked Frequency of alcohol use: None Drug Abuse: None Lives with: Family Family History: Reviewed & Not Pertinent Patient has suicidal ideation: No Patient has homicidal ideation: No - Past Medical History Cardiac Medical History: Reports: Hx Congestive Heart Failure, Hx Hypertension GI Medical History: Reports: Hx Gastroesophageal Reflux Disease Musculoskeltal Medical History: Reports Hx Arthritis - Osteoarthritis Surgical Hx: Negative - Immunizations Hx Diphtheria, Pertussis, Tetanus Vaccination: Yes Hx Pneumococcal Vaccination: 04/02/14 <EYLA SHAW - Last Filed: 05/19/17 11:57> Review of Systems - Review of Systems -: Yes ROS unobtainable due to patient's medical condition - demented <EYAL SHAW - Last Filed: 05/19/17 11:57> Physical Exam <EYAL SHAW - Last Filed: 05/19/17 11:57> <STANISLAW COX - Last Filed: 05/19/17 13:33> - Vital signs Vitals: Resp BP Pulse Ox 13 182/93 H 98 05/19/17 10:02 05/19/17 10:02 05/19/17 10:02 - Notes Notes: Physical Exam: General: Alert, 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 HEENT: Normocephalic. Atraumatic. PERRL. Extraocular movements intact. Oropharynx clear. Dry oral mucosa. Neck: Supple. Non-tender. Respiratory: No respiratory distress. Clear and equal breath sounds bilaterally. Cardiovascular: Regular rate and rhythm. Abdominal: Obese. Normal Inspection. Non-tender. No distension. Normal Bowel Sounds. Back: Non-tender. No deformity or step off. Extremities: Moves all four extremities. Upper extremities: Normal inspection. Normal ROM. Lower extremities: Normal inspection. No edema. Normal ROM. Neurological: At baseline according to old records Psychological: Demented at baseline according to old records Skin: Warm. Dry. Normal color. (EYAL SHAW) Course - Laboratory Result Diagrams: 05/19/17 12:28 05/19/17 12:28 <STANISLAW COX - Last Filed: 05/19/17 13:33> - Vital Signs Vital signs: Temp Pulse Resp BP Pulse Ox 17 145/87 H 93 05/19/17 11:24 05/19/17 11:24 05/19/17 11:24 - Laboratory Laboratory results interpreted by me: 05/19/17 05/19/17 05/19/17 10:10 12:28 12:28 RBC 3.97 L Hgb 12.3 L Hct 35.6 L Sodium 145.1 H BUN 27 H Albumin 3.4 L Urine Protein 30 H Urine Nitrite POSITIVE H Ur Leukocyte Esterase LARGE H Urine Ascorbic Acid 20 H Discharge <YEAL SHAW - Last Filed: 05/19/17 11:57> <STANISLAW COX - Last Filed: 05/19/17 13:33> - Discharge Clinical Impression: Urinary tract infection Qualifiers: Urinary tract infection type: site unspecified Hematuria presence: with hematuria Qualified Code(s): N39.0 - Urinary tract infection, site not specified Altered mental status Qualifiers: Altered mental status type: unspecified Qualified Code(s): R41.82 - Altered mental status, unspecified Condition: Stable Disposition: HOME, SELF-CARE Additional Instructions: Urinary Tract Infection: Your evaluation indicates that you have a urinary tract infection. This is due to germs growing in the bladder. This is a common problem. This infection usually responds quickly to antibiotics. Your antibiotic should be taken exactly as prescribed. Drink plenty of fluids -- three to four quarts a day. Occasionally, a bladder anesthetic will be prescribed to help stop the feeling of urgency until the antibiotic has a chance to clear the infection. This may cause your urine to be dark orange. Certain urine infections require a culture. If the doctor obtained a culture, the results will be back in two days. You should call to see if a change in treatment is needed. A repeat urinalysis after you finish treatment is often recommended. The physician will let you know if further testing is required. Call the doctor if you develop fever, chills, flank pain, inability to urinate, or blood in the urine. //////////////////////////////////////////////////////////////////////////////// //////////////////////////////////////////////////////////////////////////////// ///////////////// Start the antibiotics as prescribed tomorrow. You have received today's dose here in the emergency room. Drink plenty of fluids. Follow-up with your doctor in the next few days to check on the urine culture. RETURN TO THE EMERGENCY ROOM IF ANY NEW OR WORSENING SYMPTOMS. Prescriptions: Levofloxacin [Levaquin 500 mg Tablet] 500 mg PO DAILY #5 tablet Scribe Attestation: 05/19/17 11:37 I personally performed the services described in the documentation, reviewed and edited the documentation which was dictated to the scribe in my presence, and it accurately records my words and actions. (STANISLAW COX) Scribe Documentation - Scribe Written by Dex:: Dex Andrew, 05/19/2017 1200 acting as scribe for :: Kaya <EYAL SHAW - Last Filed: 05/19/17 11:57>
[2017-05-19 12:40] LABS: ABSOLUTE EOSINOPHILS # (AUTO) 0.3 10^3/uL (0.0-0.6); ABSOLUTE MONOCYTES (AUTO) 0.7 10^3/uL (0.1-1.4); ABSOLUTE NEUT (AUTO) 5.1 10^3/uL (1.7-8.2); BASOPHILS % (AUTO) 0.5 % (0-2); EOSINOPHILS % (AUTO) 3.5 % (0-6); HEMATOCRIT 35.6 % (37.9-51.0); HEMOGLOBIN 12.3 g/dL (13.5-17.0); HGB HCT DIFFERENCE 1.3; LYMPHOCYTES % (AUTO) 24.7 % (13-45); MEAN CORPUSCULAR HGB CONC 34.6 g/dL (32.0-36.0); MEAN CORPUSCULAR VOLUME 90 fl (80-97); MONOCYTES % (AUTO) 8.3 % (3-13); RED BLOOD COUNT 3.97 10^6/uL (4.35-5.55); RED CELL DISTRIBUTION WIDTH 13.3 % (11.5-14.0); WHITE BLOOD COUNT 8.1 10^3/uL (4.0-10.5)
[2017-05-19 12:59] LABS: ALANINE AMINOTRANSFERASE 43 U/L (21-72); ALBUMIN 3.4 g/dL (3.5-5.0); ALKALINE PHOSPHATASE 81 U/L (38-126); ANION GAP 11 (5-19); ASPARTATE AMINO TRANSFERASE 18 U/L (17-59); BILIRUBIN,DIRECT 0.3 mg/dL (0.0-0.4); BILIRUBIN,TOTAL 0.4 mg/dL (0.2-1.3); BLOOD UREA NITROGEN 27 mg/dL (7-20); CALCIUM 9.2 mg/dL (8.4-10.2); CARBON DIOXIDE 28 mmol/L (22-30); CHLORIDE 106 mmol/L (98-107); CREATININE RESULT 1.05 mg/dL (0.52-1.25); GLUCOSE 97 mg/dL (75-110); POTASSIUM 4.4 mmol/L (3.6-5.0); SODIUM 145.1 mmol/L (137-145); TOTAL PROTEIN 6.8 g/dL (6.3-8.2)
[2017-05-19 14:07] VITALS: BP 146/84
== END 2017-05-19 14:15 | disposition home or self-care (01) ==
LOC: ER 09:52
DX: N39.0 Urinary tract infection, site not specified (principal); R41.82 Altered mental status, unspecified
CPT/HCPCS: 99285; 96372; 51701; 36415; 87086; 85025; 87088; 80053; 81001; 87186; J3490; A9270; J0696